=== PATIENT | female | born 1960 | race Hispanic/Latino ===

== ENCOUNTER 2018-06-22 09:37 | Day surgery (SDC) | payer OTHER ==
[~2018-06-22 09:37] MED LIST: AMLODIPINE5 MG PO; CYCLOBENZAPRINE10 MG PO; PANTOPRAZOLE SO40 M1 PO; SERTRALINE100 MG PO; TRAMADOL HYDROC50 MG PO
[2018-06-22 15:37] VITALS: BP 132/69
== END 2018-06-22 15:50 | disposition home or self-care (01) | DRG 382 ==
LOC: ENDO 09:37 → ORM 14:30 → ENDO 14:45
PROVIDERS: ATTEND Internal Medicine Gastroenterology
PROC: 0DB48ZX Excision of Esophagogastric Junction, Via Natural or Artificial Opening Endoscopic, Diagnostic (ICD-10-PCS; principal; 2018-06-22)
PROC: 0DB78ZX Excision of Stomach, Pylorus, Via Natural or Artificial Opening Endoscopic, Diagnostic (ICD-10-PCS; 2018-06-22)
PROC: 0DJD8ZZ Inspection of Lower Intestinal Tract, Via Natural or Artificial Opening Endoscopic (ICD-10-PCS; 2018-06-22)
DX: K22.70 Barrett's esophagus without dysplasia (principal); K21.9 Gastro-esophageal reflux disease without esophagitis; K29.70 Gastritis, unspecified, without bleeding; K22.8 Other specified diseases of esophagus; K25.9 Gastric ulcer, unspecified as acute or chronic, without hemorrhage or perforation; K44.9 Diaphragmatic hernia without obstruction or gangrene; K59.00 Constipation, unspecified; K64.4 Residual hemorrhoidal skin tags; K64.8 Other hemorrhoids; K57.30 Diverticulosis of large intestine without perforation or abscess without bleeding; I10 Essential (primary) hypertension; F32.9 Major depressive disorder, single episode, unspecified; Z85.3 Personal history of malignant neoplasm of breast